=== PATIENT | female | born 1975 | race Caucasian/White ===

== ENCOUNTER 2017-01-17 06:40 | Inpatient (IN) | payer OTHER ==
[2017-01-17 08:15] VITALS: BMI 33.8
--- NOTE | 2017-01-17 08:55 | HP ---
Admitting History and Physical - Admission Chief Complaint: induction, post dates History of Present Illness: 41 y/o at 40.4 weeks post dates asking for inductio. She is a pt of [facility] and has pos ecoli in the also gbs, hiv neg, rpr-neg, rubella immune History Source: Patient Limitations to Obtaining History: No Limitations - Past Medical History DIRECTOR NEWS: No: Alzheimer's, CVA, Dementia, Migraine, Multiple Sclerosis, Peripheral Neuropathy, Parkinson's, Seizure, Syncope, TIA, Vertigo, Other Cardiovascular: No: AFIB, Aneurysm, Aortic Insufficiency, Aortic Stenosis, CAD, CHF, Deep Vein Thrombosis, HTN, Hyperlipdemia, PA, Mitral Insufficiency, Mitral Stenosis, Murmur, Pulmonary Hypertension, Other Pulmonary: No: Asthma, Bronchitis, Cancer, COPD, O2 Dependent, Pneumonia, Previously Intubated, Pulmonary Embolus, Pulmonary Fibrosis, Sleep Apnea, Other Gastrointestinal: No: Ascites, Cancer, Constipation, Crohn's Disease, Diverticulitis, Diverticulosis, Esophageal Varices, Gastritis, GERD, GI Bleed, Hemorrhoids, Hiatal Hernia, Inflamatory Bowel Disease, Irritable Bowel Disease, Pancreatitis, Peptic Ulcer Disease, Ulcerative Colitis, Other Hepatobiliary: No: Cirrhosis, Cholelithiasis, Cholecystitis, Choledocholithiasis , Hepatitis A, Hepatitis B, Hepatitis C, Other Renal/: No: Renal Failure, Renal Inusuff, BPH, Cancer, Hematuria, Hemodialysis , Neurogenic Bladder, Renal Calculi, UTI, Other Reproductive: No: Ectopic , Endometriosis, Fibroids, PID, Polycystic Ovary Syndrome, Postmenopausal, Other ...LMP: 03/18/15 ...: 7 ...Para: 6 Heme/Onc: No: Anemia, B12 Deficiency, Bleeding Disorder, Cancer, Current Chemotherapy, Current Radiation Therapy, Hemochromatosis, Hypercoaguable State, Myeloproliferative Synd, Sickle Cell Disease, Sickle Cell Trait, Thrombocytopenia, Other Infectious Disease: No: AIDS, C-Diff, Herpes Zoster, HIV, MRSA, STD's, Tuberculosis, VREF, Other Psych: No: Addictions, Anxiety, Bipolar, Depression, Panic, Psychosis, Schizophrenia, Other Musculoskeletal: No: Bursitis, Chronic low back pain, Hemiparesis, Hemiplegia, Osteoarthritis, Paraplegia, Other Rheumatology: No: Fibromyalgia, Gout, Lupus, Rheumatoid Arthritis, Sarcoidosis, Vasculitis, Other ENT: No: Allergic Rhinitis, Sinusitis, Other Dermatology: No: Basal Cell, Cellulitis, Eczema, Melanoma, Psoriasis, Squamous Cell, Other - Past Surgical History Past Surgical History: No: None, AAA Repair, AICD, Amputation, Appendectomy, Arthrosocopy, AV Fistula/Graft, Bariatric Surgery, Breast Biopsy, Bypass, CABG, Carotid Endarterectomy, Cataract Removal, Cholecystectomy, Colectomy, Colonoscopy, Colostomy, Craniotomy, , Cystectomy, Hernia Repair, Hysterectomy, Ileal Conduit, Ileosotomy, Joint Replacement, Kidney Transplant, Laminectomy, Liver Transplant, Mastectomy, Nephrectomy, Oopherectomy, Orchiectomy, Permanent Pacemaker, Prostatectomy, Splenectomy, Stent, Thoracotomy , TURP, Tonsillectomy, Tubal Ligation, Upper Endoscopy, Valve Replacement, Vasectomy, Vein Stripping/Ligation - Advance Directives Advance Directives: No: Living Will, Health Care Proxy, DNR, Organ Donor, Tissue Donor, MOLST - Smoking History Smoking history: Never smoked Have you smoked in the past 12 months: No - Alcohol/Substance Use Hx Alcohol Use: No History of Substance Use: denies: None, Cocaine, Heroin, Marijuana, Prescription , Tranquilizers - Social History Usual Living Arrangement: No: Alone, With Spouse, With Parent, With Significant Other, With Child, Assisted Living, Long-Term, Other Home Medications - Allergies Allergies/Adverse Reactions: Allergies Allergy/AdvReac Type Severity Reaction Status Date / Time aspirin Allergy Severe anaphylaxis Verified 04/11/15 19:18 . Penicillins Allergy Severe Difficulty Verified 04/11/15 19:18 Breathing ibuprofen [From Advil] Allergy Rash Verified 04/11/15 19:18 levofloxacin [From Levaquin] Allergy Itching Verified 04/12/15 00:31 vancomycin Allergy Swelling Verified 04/12/15 00:31 - Home Medications Home Medications: Ambulatory Orders Nitrofurantoin Macrocrystal [Nitrofurantoin] 100 mg PO BID #14 capsule 04/12/15 Tablet 1 tablet PO DAILY 01/17/17 Review of Systems - Review of Systems Constitutional: reports: No Symptoms Eyes: reports: No Symptoms HENT: reports: No Symptoms Neck: reports: No Symptoms Cardiovascular: reports: No Symptoms Respiratory: reports: No Symptoms Gastrointestinal: reports: No Symptoms Genitourinary: reports: No Symptoms Breasts: reports: No Symptoms Reported Musculoskeletal: reports: No Symptoms Integumentary: reports: No Symptoms Neurological: reports: No Symptoms Endocrine: reports: No Symptoms Hematology/Lymphatic: reports: No Symptoms Psychiatric: reports: No Symptoms 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ination Vital Signs: Vital Signs Temperature 98.3 F 01/17/17 08:06 Pulse Rate 87 01/17/17 08:06 Respiratory Rate 18 01/17/17 08:06 Blood Pressure 125/80 01/17/17 08:06 O2 Sat by Pulse Oximetry (%) Constitutional: Yes: Well Nourished Eyes: Yes: WNL HENT: Yes: WNL Neck: Yes: WNL Cardiovascular: Yes: WNL Respiratory: Yes: WNL Gastrointestinal: Yes: WNL ...Rectal Exam: Yes: WNL Renal/: Yes: WNL Breast(s): Yes: WNL Musculoskeletal: Yes: WNL Extremities: Yes: WNL Neurological: Yes: WNL ...Motor Strength: WNL Psychiatric: Yes: WNL (exam-1cm/-3/) Assessment/Plan as above cervidil labs expect
[2017-01-17] MEDS: CLINDAMYCIN 600MG PREMIX IVPB 50 ML IVPB SCH ×2 (09:00→21:00)
[2017-01-17] MEDS: ELECTROLYTE-148 SOLN 1,000 ML IV SCH (09:00)
[2017-01-17] MEDS ORDERED: DINOPROSTONE 10 MG VAGINAL SUPPOSITORY VG ONE (09:00)
[2017-01-17 09:44] LABS: BASOPHIL 0.3 % (0-2.0); EOSINOPHIL 0.3 % (0-4.5); MCH 29.9 pg (25.7-33.7); MCHC 33.6 g/dl (32.0-36.0); MEAN PLT VOLUME 10.4 fl (7.5-11.1); NEUTROPHILS 76.9 % (42.8-82.8); PLATELET COUNT 175 K/MM3 (134-434); RDW 14.8 % (11.6-15.6); WHITE BLOOD COUNT 9.9 K/mm3 (4.0-10.0)
[2017-01-17 10:01] LABS: INR 1.02 (0.82-1.09); PROTHROMBIN TIME (PATIENT) 11.2 SEC (9.98-11.88)
[2017-01-17 10:04] LABS: ACTIVATED PTT 30.7 SECONDS (26.9-34.4)
[2017-01-17 10:17] LABS: CALCIUM 8.5 mg/dL (8.5-10.1); CREATININE 0.5 mg/dL (0.55-1.02)
--- NOTE | 2017-01-17 12:05 | PN ---
Progress Note (short form) - Note Progress Note: pt doing well, has cervidil. Occasional pressure continue cervdil
[2017-01-17] MEDS ORDERED: BUTORPHANOL TARTRATE 1 MG/ML VIAL IVPUSH PRN (20:31)
[2017-01-17] MEDS ORDERED: PROMETHAZINE HCL 25 MG/1 ML VIAL IVPUSH ONE (20:31)
--- NOTE | 2017-01-17 20:33 | PN ---
Progress Note (short form) - Note Progress Note: cx 2 cm 75 vx -2 mi, fhr cat 1 , contraction q 2min , wants pain meds
[2017-01-18] MEDS: CLINDAMYCIN 600MG PREMIX IVPB 50 ML IVPB SCH ×2 (03:00→09:15)
[2017-01-18] MEDS ORDERED: FENTANYL/BUPIVACAINE/NS/PF - PCEA - 50 ML DISP.SYRIN EP SCH (03:15)
--- NOTE | 2017-01-18 03:36 | PN ---
Progress Note (short form) - Note Progress Note: cx 5 cm, 80 vx -2 mi, fhr cat 1, contraction q 3min
--- NOTE | 2017-01-18 08:28 | PN ---
Progress Note (short form) - Note Progress Note: cx 6 cm 80 vx -1 arom, mec stain amniotic fluid , contraction irregular . scalp electrode appllied, LT side . pitocin stimulation. rba discussed
[2017-01-18] MEDS ORDERED: OXYTOCIN 15 UNITS/ LR 250 ML 250 ML IVPB SCH (08:30)
[2017-01-18] MEDS: ELECTROLYTE-148 SOLN 1,000 ML IV SCH (09:20)
--- NOTE | 2017-01-18 10:43 | PN ---
Progress Note (short form) - Note Progress Note: cx 7 cm 80 vx -1 mr, fhr cat 1,contraction q 3 to 4 min plan cont pitocin , revaluate in 1 HR
--- NOTE | 2017-01-18 12:02 | PN ---
Progress Note (short form) - Note Progress Note: cx 9 cm 100 vx 0 , mild variable, wants to push
[2017-01-18] MEDS ORDERED: BISACODYL 10 MG SUPP.RECT RC PRN (12:33)
[2017-01-18] MEDS ORDERED: oxyCODONE HCL 5 MG TABLET PO PRN (12:33)
[2017-01-18] MEDS ORDERED: BENZOCAINE 28 GM HEMORRHOIDAL OINTMENT TP PRN (12:33)
[2017-01-18] MEDS ORDERED: METHYLERGONOVINE MALEATE 0.2 MG/1 ML AMP IM PRN (12:33)
[2017-01-18] MEDS ORDERED: WITCH HAZEL 50% (TUCKS) 40 PAD/JAR PAD TP PRN (12:33)
[2017-01-18] MEDS ORDERED: BENZOCAINE 20% 57 GM BOTTLE TP PRN (12:33)
[2017-01-18] MEDS ORDERED: IBUPROFEN 600 MG TABLET (FP) PO PRN (12:33)
[2017-01-18] MEDS ORDERED: D5W-LR W/ 20 UNITS OXYTOCIN 1,000 ML IV SCH (12:45)
[2017-01-18 13:31] LABS: ARTERIAL BLD GAS O2 SATURATION 37.1 % (90-98.9); ARTERIAL BLOOD GAS BASE EXCESS -5.6 meq/l (-2-2); ARTERIAL BLOOD GAS HCO3 22.8 meq/L (22-26)
[2017-01-18 13:36] LABS: ARTERIAL BLOOD GAS PO2 20.7 mmHg (80-100); ARTERIAL BLOOD GAS pH 7.23 (7.35-7.45)
[2017-01-18 13:37] LABS: VENOUS PH 7.32 (7.32-7.42)
[2017-01-18 13:38] LABS: VENOUS BLOOD GAS HCO3 22.2 meq/L (19-25)
[2017-01-18] MEDS: FERROUS SO4 325 MG TABLET (FP) PO SCH (21:24)
[2017-01-19] MEDS: ACETAMINOPHEN 325 MG TABLET (FP) PO PRN ×3 (01:56→19:47)
[2017-01-19 08:16] LABS: BASOPHIL 0.2 % (0-2.0); EOSINOPHIL 0.6 % (0-4.5); MCH 29.8 pg (25.7-33.7); MCHC 33.3 g/dl (32.0-36.0); MEAN CELL VOLUME 89.5 fl (80-96); MEAN PLT VOLUME 10.9 fl (7.5-11.1); NEUTROPHILS 75.9 % (42.8-82.8); PLATELET COUNT 169 K/MM3 (134-434); RDW 15.2 % (11.6-15.6)
--- NOTE | 2017-01-19 08:24 | PN ---
Post Progress Note - Subjective Subjective: no complains Post Day: 1 Type of Delivery: Vital Signs: Vital Signs Temperature 98.1 F 01/19/17 06:00 Pulse Rate 80 01/19/17 06:00 Respiratory Rate 18 01/19/17 06:00 Blood Pressure 110/60 01/19/17 06:00 O2 Sat by Pulse Oximetry (%) 99 01/18/17 12:15 Breast Exam: Yes: Soft. No: Engorged Uterus: Yes: Fundus Firm, Fundus below umbilicus, Non-tender Lochia: Yes: Rubra Lochia, amount: Moderate Extremities: Yes: Calves non-tender Perineum: Yes: Intact Activity: Ambulating - Labs Labs: CBC WBC 12.0 K/mm3 (4.0-10.0) H 01/19/17 07:20 RBC 3.68 M/mm3 (3.60-5.2) 01/19/17 07:20 Hgb 11.0 GM/dL (10.7-15.3) D 01/19/17 07:20 Hct 32.9 % (32.4-45.2) 01/19/17 07:20 MCV 89.5 fl (80-96) 01/19/17 07:20 MCHC 33.3 g/dl (32.0-36.0) 01/19/17 07:20 RDW 15.2 % (11.6-15.6) 01/19/17 07:20 Plt Count 169 K/MM3 (134-434) 01/19/17 07:20 MPV 10.9 fl (7.5-11.1) 01/19/17 07:20 Neutrophils % 75.9 % (42.8-82.8) 01/19/17 07:20 Lymphocytes % 17.1 % (8-40) 01/19/17 07:20 Monocytes % 6.2 % (3.8-10.2) 01/19/17 07:20 Eosinophils % 0.6 % (0-4.5) D 01/19/17 07:20 Basophils % 0.2 % (0-2.0) 01/19/17 07:20 Assessment/Plan stable. plan discharge tomorrow.
[2017-01-19] MEDS: FERROUS SO4 325 MG TABLET (FP) PO SCH ×2 (09:20→21:17)
[2017-01-19] MEDS: PRENATAL VITAMINS W/ FOLIC ACID TABLET (FP) PO SCH (09:20)
[2017-01-19] MEDS ORDERED: SENNOSIDES/DOCUSATE COMBO (SENNA PLUS) TABLET (UD) PO PRN (22:00)
--- NOTE | 2017-01-20 06:29 | PN ---
Post Progress Note Type of Delivery: Vital Signs: Vital Signs Temperature 98.7 F 01/19/17 21:29 Pulse Rate 78 01/19/17 21:29 Respiratory Rate 20 01/19/17 21:29 Blood Pressure 114/62 01/19/17 21:29 O2 Sat by Pulse Oximetry (%) 99 01/18/17 12:15 Breast Exam: Yes: Soft Uterus: Yes: Fundus Firm Abdomen/GI: Yes: Abdomen soft Lochia: Yes: Rubra Lochia, amount: Small Extremities: Yes: Calves non-tender Perineum: Yes: Intact Activity: Ambulating - Labs Labs: CBC WBC 12.0 K/mm3 (4.0-10.0) H 01/19/17 07:20 RBC 3.68 M/mm3 (3.60-5.2) 01/19/17 07:20 Hgb 11.0 GM/dL (10.7-15.3) D 01/19/17 07:20 Hct 32.9 % (32.4-45.2) 01/19/17 07:20 MCV 89.5 fl (80-96) 01/19/17 07:20 MCHC 33.3 g/dl (32.0-36.0) 01/19/17 07:20 RDW 15.2 % (11.6-15.6) 01/19/17 07:20 Plt Count 169 K/MM3 (134-434) 01/19/17 07:20 MPV 10.9 fl (7.5-11.1) 01/19/17 07:20 Neutrophils % 75.9 % (42.8-82.8) 01/19/17 07:20 Lymphocytes % 17.1 % (8-40) 01/19/17 07:20 Monocytes % 6.2 % (3.8-10.2) 01/19/17 07:20 Eosinophils % 0.6 % (0-4.5) D 01/19/17 07:20 Basophils % 0.2 % (0-2.0) 01/19/17 07:20 Assessment/Plan as above continue care dc home
[2017-01-20 09:35] VITALS: BP 119/67; PULSE 76; TEMP 97.7
[2017-01-20] MEDS: FERROUS SO4 325 MG TABLET (FP) PO SCH (10:34)
[2017-01-20] MEDS: ACETAMINOPHEN 325 MG TABLET (FP) PO PRN (10:34)
[2017-01-20] MEDS: PRENATAL VITAMINS W/ FOLIC ACID TABLET (FP) PO SCH (10:34)
--- NOTE | 2017-01-25 21:19 | DS ---
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 Vital Signs: Vital Signs Temperature 97.7 F 01/20/17 07:30 Pulse Rate 76 01/20/17 07:30 Respiratory Rate 18 01/20/17 07:30 Blood Pressure 119/67 01/20/17 07:30 O2 Sat by Pulse Oximetry (%) 99 01/18/17 12:15 Constitutional: Yes: Well Nourished, No Distress, Calm Eyes: Yes: WNL, Conjunctiva Clear, EOM Intact HENT: Yes: WNL, Atraumatic, Normocephalic Neck: Yes: WNL, Supple, Trachea Midline Cardiovascular: Yes: WNL, Regular Rate and Rhythm Respiratory: Yes: WNL, Regular, CTA Bilaterally Gastrointestinal: Yes: WNL ...Rectal Exam: Yes: WNL Renal/: Yes: WNL ....Post : Yes: Uterus firm, Uterus non-tender, Slight lochia rubra Breast(s): Yes: WNL Musculoskeletal: Yes: WNL Extremities: Yes: WNL Integumentary: Yes: WNL Wound/Incision: Yes: Clean/Dry Neurological: Yes: WNL, Alert, Oriented ...Motor Strength: WNL Psychiatric: Yes: WNL, Alert, Oriented Labs: CBC, BMP 01/19/17 07:20 01/17/17 09:20 Delivery - Delivery Vaginal Delivery: Spontaneous (no complication) Type of Anesthesia: Epidural Episiotomy/Laceration: None EBL (cc): 300 Delivery, Single - Stages of Labor Date 1st Stage Initiatied: 01/17/17 Time 1st Stage Initiated: 22:00 Date 2nd Stage Initiated: 01/18/17 Time 2nd Stage Initiated: 12:20 Date of Delivery: 01/18/17 Time of Delivery: 12:23 Time Placenta Delivered: 12:28 Placenta: Yes: Spontaneous - Condition of Cigar 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: Yes Name: Groening,[place] Infant Gender: Female Weight: 6 lb 10 oz Position: Left, OA Total Hours ROM (Hrs/Mins): 4/13 - 1 Minute Total Score: 8 5 Minutes Total Score: 8 - [place] Feeding Plan Initial Plan: Exclusive throughout hospitalization Discharge Summary Reason For Visit: LABOR ADMIT Procedures: Principal: Condition: Good - Instructions Diet, Activity, Other Instructions: PLEASE FOLLOWUP WITH IN FOUR WEEKS PLEASE CALL FOR APPOINTMENT IF ANY HEAVY BLEEDING, FEVER, OR SEVERE PAIN CALL WARM LINE: [phone] Referrals: Son Fisher MD [Staff Physician] - Disposition: HOME - Home Medications Comprehensive Discharge Medication List: Ambulatory Orders Nitrofurantoin Macrocrystal [Nitrofurantoin] 100 mg PO BID #14 capsule 04/12/15 Tablet 1 tablet PO DAILY 01/17/17 Acetaminophen 325 mg PO TID 7 Days 01/20/17
== END 2017-01-20 12:26 | disposition home or self-care (01) | DRG 560 ==
LOC: JLDR 06:40 → J3W 01-18 14:30
PROVIDERS: ADMIT Obstetrics & Gynecology; ATTEND Obstetrics & Gynecology
PROC: 10E0XZZ Delivery of Products of Conception, External Approach (ICD-10-PCS; principal; 2017-01-18)
PROC: 3E0P7GC Introduction of Other Therapeutic Substance into Female Reproductive, Via Natural or Artificial Opening (ICD-10-PCS; 2017-01-18)
PROC: 30233S1 Transfusion of Nonautologous Globulin into Peripheral Vein, Percutaneous Approach (ICD-10-PCS; 2017-01-18)
DX: O48.0 Post-term pregnancy (principal); Z3A.40 40 weeks gestation of pregnancy; Z37.0 Single live birth
CPT/HCPCS: 36415; 36600; 59409; 80048; 82803; 85025; 85461; 85610; 85730; 86593; 86850; 86900; 86901; 86999

== ENCOUNTER 2020-04-14 23:47 | Emergency (ER) | payer OTHER ==
[2020-04-14 23:53] VITALS: BP 126/69; PULSE 74; TEMP 97.7; BMI 31.6
[2020-04-15] MEDS ORDERED: ACETAMINOPHEN 1000 MG/100 ML VIAL (NON FORMULARY) IVPB ONE (01:29)
[2020-04-15 02:11] LABS: BASO % 0.3 % (0-2.0); HEMOGLOBIN 12.6 GM/dL (10.7-15.3); LYMPH % 25.5 % (8-40); MCH 29.9 pg (25.7-33.7); MCHC 33.2 g/dl (32.0-36.0); MEAN CELL VOLUME 89.8 fl (80-96); MEAN PLT VOLUME 9.8 fl (7.5-11.1); MONO % 5.8 % (3.8-10.2); NEUT % 66.4 % (42.8-82.8); PLATELET COUNT 312 K/MM3 (134-434); RBC 4.22 M/mm3 (3.60-5.2); RDW 14.1 % (11.6-15.6); WHITE BLOOD COUNT 12.6 K/mm3 (4.0-10.0)
[2020-04-15 02:25] LABS: PROTHROMBIN TIME (PATIENT) 11.8 SEC (9.7-13.0)
[2020-04-15] MEDS ORDERED: ACETAMINOPHEN INJECTION 100 ML IVPB ONE (02:33)
[2020-04-15 02:38] LABS: ALBUMIN 3.9 g/dl (3.4-5.0); ALK PHOS 128 U/L (45-117); ANION GAP 5 MMOL/L (8-16); BILIRUBIN,TOTAL 0.4 mg/dL (0.2-1); BLOOD UREA NITROGEN 7.9 mg/dL (7-18); CALCIUM 9.3 mg/dL (8.5-10.1); CHLORIDE 107 mmol/L (98-107); CO2 28 mmol/L (21-32); CREATININE 0.6 mg/dL (0.55-1.3); GLUCOSE,RANDOM 112 mg/dL (74-106); POTASSIUM 3.9 mmol/L (3.5-5.1); SGOT/AST 24 U/L (15-37); SGPT/ALT 34 U/L (13-61); SODIUM 140 mmol/L (136-145); TOT PROT 7.6 g/dl (6.4-8.2)
[2020-04-15 02:41] LABS: EPI CELLS 17 /uL (0-25.1); HYALINE CASTS 1 /uL (0-3.1); PH,URINE 7.5 (5.0-8.0); URINE APPEARANCE CLEAR; URINE BACTERIA 537 /uL (0-1359); URINE BILIRUBIN NEGATIVE (NEGATIVE); URINE COLOR YELLOW; URINE GLUCOSE (UA) NEGATIVE (NEGATIVE); URINE KETONE NEGATIVE (NEGATIVE); URINE LEUK ESTERASE 3+ (NEGATIVE); URINE NITRITE NEGATIVE (NEGATIVE); URINE PROTEIN NEGATIVE (NEGATIVE); URINE RBC 9 /uL (0-23.9); URINE WBC 166 /uL (0-25.8)
[2020-04-15] MEDS ORDERED: FAMOTIDINE 20 MG/50 ML IVPB 20 MG/50 ML MG IVPB ONE (03:00)
[2020-04-15] MEDS ORDERED: FLUCONAZOLE 100 MG TABLET (UD) PO ONE (03:00)
[2020-04-15] MEDS ORDERED: FAMOTIDINE 20 MG TABLET PO ONE (03:04)
[2020-04-15] MEDS ORDERED: FLUCONAZOLE 100 MG TABLET (UD) ONE (03:26)
[2020-04-15] MEDS ORDERED: FAMOTIDINE 20 MG TABLET ONE (03:26)
== END 2020-04-15 03:47 | disposition home or self-care (01) ==
LOC: JER 23:47
PROC: 3E033NZ Introduction of Analgesics, Hypnotics, Sedatives into Peripheral Vein, Percutaneous Approach (ICD-10-PCS; principal; 2020-04-14)
PROC: 3E033GC Introduction of Other Therapeutic Substance into Peripheral Vein, Percutaneous Approach (ICD-10-PCS; 2020-04-14)
DX: R07.89 Other chest pain (principal)
CPT/HCPCS: 36415; 71250-TC; 80053; 81003; 82550; 82728; 83615; 84484; 84703; 85025; 85610; 85730; 86140; 87077; 87086; 93005; 93010; 99285-25

== ENCOUNTER 2020-06-02 04:46 | Emergency (ER) | payer OTHER ==
[2020-06-02] MEDS ORDERED: FAMOTIDINE 20 MG TABLET PO ONE (05:20)
[2020-06-02 05:24] VITALS: TEMP 98.5; BMI 29.9
--- NOTE | 2020-06-02 05:26 | PDOC ---
History of Present Illness - General Chief Complaint: Pain Stated Complaint: ABDOMINAL PAIN Time Seen by Provider: 06/02/20 04:50 - History of Present Illness Initial Comments: 06/02/20 05:21 45 yo female with pmh GERD, COVID presenting to ED for palpitations that started two hours ago. Pt explains she has been having gas like pains for the last two days where she took her prescribed omeprazole and probitoic. Today pain was wo rse so decided to take gas x as well and then started feeling palpitations. Pt now still has pressure like pain going from epigastric area to throat. Pt explains pain is worse when drinking orange juice. Pt denies nausea, vomitting, shortness of breath, fevers or chills. PMH: GERD, COVID Med: omeprazole PSH: denies Social: denies alcohol, smoking and drugs allergies: aspirin, penicillin, ibuprofen, levofloxacin, vancomycin Family history: [place] in mother in 50s Past History - Medical History Allergies/Adverse Reactions: Allergies Allergy/AdvReac Type Severity Reaction Status Date / Time aspirin Allergy Severe anaphylaxis Verified 06/02/20 05:13 . Penicillins Allergy Severe Difficulty Verified 06/02/20 05:13 Breathing ibuprofen [From Advil] Allergy Rash Verified 06/02/20 05:13 levofloxacin [From Levaquin] Allergy Itching Verified 06/02/20 05:13 vancomycin Allergy Swelling Verified 06/02/20 05:13 Home Medications: Ambulatory Orders Nitrofurantoin Macrocrystal [Nitrofurantoin] 100 mg PO BID #14 capsule 04/12/15 Tablet 1 tablet PO DAILY 01/17/17 Acetaminophen 325 mg PO TID 7 Days capsule 01/20/17 Doxycycline Monohydrate [Mondoxyne Nl] 100 mg PO BID 14 Days #28 capsule 03/08/20 Doxycycline Monohydrate [Mondoxyne Nl] 100 mg PO BID 14 Days #28 capsule 03/08/20 Asthma: No Cancer: No Cardiac Disorders: No COPD: No Diabetes: No HTN: No Seizures: No Thyroid Disease: No - Reproductive History Is Patient Now?: No (#): 8 Para: 5 Therapeutic (s) & number: No Spontaneous : 2 - Immunization History Immunization Up to Date: Yes - Psycho-Social/Smoking History Smoking History: Never smoked Have you smoked in the past 12 months: No Information on smoking cessation initiated: No - Substance Abuse Hx (Audit-C & DAST Scrn) How often the patient has a drink containing alcohol: Never Score: In Men: 4 or > Positive; In Women: 3 or > Positive: 0 Screen Result (Pos requires Nsg. Audit-10AR): Negative In the last yr the pt used illegal drug/Rx for NonMed reason: No Score: Yes response is considered Positive: 0 Screen Result (Positive result requires Nsg. DAST-10): Negative Review of Systems - Review of Systems Comments:: 06/02/20 05:25 GENERAL/CONSTITUTIONAL: No fever or chills. No weakness. HEAD, EYES, EARS, NOSE AND THROAT: No change in vision. No ear pain or discharge. CARDIOVASCULAR:Chest pain. NO shortness of breath. RESPIRATORY: No cough, wheezing, or hemoptysis. GASTROINTESTINAL: No nausea, vomiting, diarrhea or constipation. GENITOURINARY: No dysuria, frequency, or change in urination. MUSCULOSKELETAL: No joint or muscle swelling or pain. No neck or back pain. SKIN: No rash NEUROLOGIC: No headache, vertigo, loss of consciousness, or change in strength/sensation. ENDOCRINE: No increased thirst. No abnormal weight change ALLERGIC/IMMUNOLOGIC: No hives *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 - Vital Signs Last Vital Signs Temp Pulse Resp BP Pulse Ox 98.5 F 80 18 127/81 99 06/02/20 04:50 06/02/20 04:50 06/02/20 04:50 06/02/20 04:50 06/02/20 04:50 - 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 06/02/20 05:26 GENERAL: Awake, alert, and fully oriented, in no acute distress HEAD: No signs of trauma, normocephalic, atraumatic EYES: PERRLA, EOMI, sclera anicteric, conjunctiva clear ENT: Auricles normal inspection, hearing grossly normal, nares patent, oropharynx clear without exudates. Moist mucosa NECK: Normal ROM, supple, no lymphadenopathy, JVD, or masses LUNGS: No distress, speaks full sentences, clear to auscultation bilaterally HEART: Regular rate and rhythm, normal S1 and S2, no murmurs, rubs or gallops, peripheral pulses normal and equal bilaterally. ABDOMEN: Soft, normoactive bowel sounds. epigastric tenderness and RUQ tenderness. EXTREMITIES : Normal inspection, Normal range of motion, no edema. No clubbing or cyanosis. NEUROLOGICAL: Cranial nerves II through XII grossly intact. Normal speech, nor mal gait, no focal sensorimotor deficits SKIN: Warm, Dry, normal turgor, no rashes or lesions noted ED Treatment Course - LABORATORY CBC & Chemistry Diagram: 06/02/20 05:26 06/02/20 05:26 Medical Decision Making - Medical Decision Making 06/02/20 05:29 45 year old female complaining of palpitations and epigastric pain radiating to neck. Will get cbc, cmp, ekg, cardiac enzymes and chest xray. Will give pepcid. 06/02/20 07:21 Pt has elevated alk phos, ast, and alt will get gallbladder ultrasound. Pt was signed out to AM team. Discharge - Discharge Information Problems reviewed: Yes Clinical Impression/Diagnosis: Epigastric pain Condition: Fair Disposition: HOME - Follow up/Referral Referrals: Prisca Fajardo [Primary Care Provider] - - Patient Discharge Instructions Patient Printed Discharge Instructions: DI for Epigastric Pain Additional Instructions: You came into the ED for epigastric pain. At the ED we did labs and imaging. The labs showed elevated liver levels so we decided to scan your gallbladder. Please follow up with your PCP for this pain within one week. IF you have any of the following please return: - unable to eat anything by mouth - fever - bloody emesis Any emergent symptoms please call for medical help right away. - Post Discharge Activity
[2020-06-02] MEDS ORDERED: FAMOTIDINE 20 MG TABLET ONE (05:36)
[2020-06-02 05:39] LABS: BASO % 0.3 % (0-2.0); EOS % 1.3 % (0-4.5); HEMATOCRIT 41.4 % (32.4-45.2); HEMOGLOBIN 13.8 GM/dL (10.7-15.3); LYMPH % 29.4 % (8-40); MCH 29.7 pg (25.7-33.7); MCHC 33.2 g/dl (32.0-36.0); MEAN CELL VOLUME 89.3 fl (80-96); MEAN PLT VOLUME 9.4 fl (7.5-11.1); MONO % 7.3 % (3.8-10.2); NEUT % 61.7 % (42.8-82.8); PLATELET COUNT 313 K/MM3 (134-434); RBC 4.64 M/mm3 (3.60-5.2); RDW 13.6 % (11.6-15.6); WHITE BLOOD COUNT 10.2 K/mm3 (4.0-10.0)
--- NOTE | 2020-06-02 05:54 | PDOC ---
Attending Attestation - Resident Resident Name: Maximo Trotter - ED Attending Attestation I have performed the following: I have examined & evaluated the patient, The case was reviewed & discussed with the resident, I agree w/resident's findings & plan - HPI HPI: 06/02/20 05:47 Pt comes with GERD and reflux. 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 Pt got over COVID and she was on doxycycline x 10 days. Pt's CXR showed that the doxy resolved her pneumonia. Pt noted that 2 weeks after the doxy course was completed she started having epigastric pain and discomfort. Pt wants to make sure this has nothing to do with her heart. She states that she has been eating more fruits and veggies, and it sounds sa though to me that pt is not eating enough food. - Physicial Exam PE: 06/02/20 05:54 Pt has minimal epigastric pain Rest of exam is normal Pt has no fever and no chills Pt has no flank pain Pt has normal HEART and LUNGS neuro: no focal deficits. - Medical Decision Making 06/02/20 05:55 Pt will have basic labs. CXR also. She will be referred to GI specialist. 06/02/20 06:13 Labs are all normal, except for LFTs that are elevated. This could be GB disease and she will require an abdominal sono in the AM Heart Score/ECG Review - ECG Intrepretation Rhythm: Regular Rhythm - [place]: Normal - P and OR Delta Wave(s) Present: No WPW: No - QRS Poor R Wave Progression: No Q Wave Present: No - ST and T Early Repolarization: No Non Specific ST-T Wave changes: No Flattened T Waves: No - ECG Impressions Normal ECG: Yes Non-specific ST Elevation: No Ischemic Changes: No Bradycardia: No Torsades rufus Pointes: No WPW: No Discharge - Discharge Information Problems reviewed: Yes Clinical Impression/Diagnosis: Epigastric pain Condition: Fair Disposition: HOME - Additional Discharge Information Prescriptions: Famotidine 10 mg PO PRN #30 tablet - Follow up/Referral Referrals: Prisca Fajardo [Primary Care Provider] - - Patient Discharge Instructions Patient Printed Discharge Instructions: DI for Epigastric Pain Additional Instructions: Take tylenol, as directed by the label, for pain control. Take pepcid and maalox, as directed by the label. These medications can be purchased over the counter. Drink plenty of fluids. Please follow up with your PCP for this pain within one week. Please provide th em with the Ultrasound Report you received. Return to the emergency department if you experience: - unable to eat anything by mouth - fever - bloody vomiting - chest pain - anything that concerns you - Post Discharge Activity
[2020-06-02 06:08] LABS: ALBUMIN 4.2 g/dl (3.4-5.0); ALK PHOS 137 U/L (45-117); ANION GAP 10 MMOL/L (8-16); BILIRUBIN,TOTAL 0.6 mg/dL (0.2-1); BLOOD UREA NITROGEN 11.8 mg/dL (7-18); CALCIUM 9.2 mg/dL (8.5-10.1); CHLORIDE 106 mmol/L (98-107); CO2 24 mmol/L (21-32); CREATININE 0.7 mg/dL (0.55-1.3); GLUCOSE,RANDOM 111 mg/dL (74-106); POTASSIUM 3.9 mmol/L (3.5-5.1); SGOT/AST 47 U/L (15-37); SGPT/ALT 65 U/L (13-61); SODIUM 139 mmol/L (136-145); TOT PROT 8.4 g/dl (6.4-8.2)
[2020-06-02 06:47] LABS: LIPASE 183 U/L (73-393)
[2020-06-02] MEDS ORDERED: ACETAMINOPHEN 325 MG TABLET (FP) PO ONE (07:04)
--- NOTE | 2020-06-02 07:26 | PDOC ---
*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 - Vital Signs Last Vital Signs Temp Pulse Resp BP Pulse Ox 98.5 F 80 18 127/81 99 06/02/20 04:50 06/02/20 04:50 06/02/20 04:50 06/02/20 04:50 06/02/20 04:50 ED Treatment Course - LABORATORY CBC & Chemistry Diagram: 06/02/20 05:26 06/02/20 05:26 - ADDITIONAL ORDERS Additional order review: Laboratory Results 06/02/20 06/02/20 05:26 05:26 Sodium 139 Potassium 3.9 Chloride 106 Carbon Dioxide 24 Anion Gap 10 BUN 11.8 Creatinine 0.7 Est GFR (CKD-EPI)AfAm 119.58 Est GFR (CKD-EPI)NonAf 103.18 Random Glucose 111 H Calcium 9.2 Total Bilirubin 0.6 AST 47 H ALT 65 H Alkaline Phosphatase 137 H Creatine Kinase 122 Troponin I < 0.02 Total Protein 8.4 H Albumin 4.2 Lipase 183 Serum , Qual Negative 06/02/20 05:26 RBC 4.64 MCV 89.3 MCHC 33.2 RDW 13.6 MPV 9.4 Neutrophils % 61.7 Lymphocytes % 29.4 Monocytes % 7.3 Eosinophils % 1.3 Basophils % 0.3 - Medications Given in the ED: ED Medications Discontinued Medications Generic Name Dose Route Start Last Admin Trade Name Jim PRN Reason Stop Dose Admin Famotidine 20 mg 06/02/20 05:20 06/02/20 05:37 Pepcid - PO 06/02/20 05:21 20 mg ONCE ONE Administration Medical Decision Making - Medical Decision Making 06/02/20 07:26 signed out from PM team - epigastric pain x 2days - elevated LFTs - neg trop - EKG 06/02/20 05:57 HR 65 intervals wnl NSR, RAD, no MATTY/D, no TWI f/u RUQ US dispo accordingly 06/02/20 11:52 US report negative DC home w/ PCP f/u Discharge - Discharge Information Problems reviewed: Yes Clinical Impression/Diagnosis: Epigastric pain Condition: Fair Disposition: HOME - Follow up/Referral Referrals: Prisca Fajardo [Primary Care Provider] - - Patient Discharge Instructions Patient Printed Discharge Instructions: DI for Epigastric Pain Additional Instructions: Take tylenol, as directed by the label, for pain control. Take pepcid and maalox, as directed by the label. These medications can be purchased over the counter. Drink plenty of fluids. Please follow up with your PCP for this pain within one week. Please provide them with the Ultrasound Report you received. Return to the emergency department if you experience: - unable to eat anything by mouth - fever - bloody vomiting - chest pain - anything that concerns you - Post Discharge Activity
[2020-06-02] MEDS ORDERED: ACETAMINOPHEN 325 MG TABLET (FP) ONE (08:10)
--- NOTE | 2020-06-02 09:11 | EKG ---
Test Reason : Blood Pressure : / mmHG Vent. Rate : 064 BPM Atrial Rate : 064 BPM P-R Int : 158 ms QRS Dur : 080 ms QT Int : 410 ms P-R-T Axes : 000 116 124 degrees QTc Int : 422 ms Lead misplacement ABNORMAL ECG WHEN COMPARED WITH ECG OF 15-APR-2020 01:47, Repeat ECG Confirmed by Ish Simeon ([id number]) on 06/02/2020 9:10:48 AM Referred By: Confirmed By:Ish Simeon
[2020-06-02 13:04] VITALS: BP 112/65; PULSE 74
== END 2020-06-02 11:57 | disposition home or self-care (01) ==
LOC: JER 04:46
DX: R10.13 Epigastric pain (principal)
CPT/HCPCS: 36415; 76705-TC; 80053; 82550; 83690; 84484; 84703; 85025; 93005; 93010; 99285-25

== ENCOUNTER 2021-04-18 20:37 | Inpatient (IN) | payer OTHER ==
[2021-04-18] MEDS ORDERED: ACETAMINOPHEN 1000 MG/100 ML VIAL (NON FORMULARY) IVPB ONE (21:11)
[2021-04-18] MEDS ORDERED: ONDANSETRON 4 MG/2 ML VIAL IVPUSH ONE (21:11)
[2021-04-18] MEDS ORDERED: SODIUM CHLORIDE 0.9% 500 ML INFUS.BAG IV ONE (21:11)
[2021-04-18] MEDS ORDERED: POLYETHYLENE GLYCOL (HEALTHYLAX) 3350 17 GM PACKET PO ONE (21:12)
[2021-04-18] MEDS ORDERED: LACTULOSE 20 GM/30 ML UDC (FOR ORAL USE ONLY) PO ONE (21:12)
[2021-04-18] MEDS ORDERED: LACTULOSE 20 GM/30 ML UDC (FOR ORAL USE ONLY) ONE (21:15)
[2021-04-18] MEDS ORDERED: POLYETHYLENE GLYCOL (HEALTHYLAX) 3350 17 GM PACKET ONE (21:15)
[2021-04-18] MEDS ORDERED: ACETAMINOPHEN INJECTION 100 ML IVPB ONE (21:15)
[2021-04-18] MEDS ORDERED: ONDANSETRON 4 MG/2 ML VIAL ONE (21:15)
[2021-04-18 21:52] LABS: BASO % 0.3 % (0-2.0); EOS % 1.3 % (0-4.5); HEMATOCRIT 39.1 % (32.4-45.2); HEMOGLOBIN 13.2 GM/dL (10.7-15.3); LYMPH % 25.6 % (8-40); MCH 29.6 pg (25.7-33.7); MCHC 33.7 g/dl (32.0-36.0); MEAN CELL VOLUME 87.8 fl (80-96); MEAN PLT VOLUME 9.3 fl (7.5-11.1); MONO % 6.3 % (3.8-10.2); NEUT % 66.5 % (42.8-82.8); PLATELET COUNT 310 10^3/uL (134-434); RBC 4.46 M/mm3 (3.60-5.2); RDW 13.8 % (11.6-15.6); WHITE BLOOD COUNT 16.9 K/mm3 (4.0-10.0)
[2021-04-18 21:56] LABS: CALCIUM 9.1 mg/dL (8.5-10.1)
[2021-04-18 21:57] LABS: BLOOD UREA NITROGEN 11.8 mg/dL (7-18)
[2021-04-18 22:00] LABS: CREATININE 0.9 mg/dL (0.55-1.3)
[2021-04-18 22:01] LABS: BILIRUBIN,TOTAL 0.7 mg/dL (0.2-1)
[2021-04-18 22:02] LABS: TOT PROT 7.7 g/dl (6.4-8.2)
[2021-04-18 22:05] LABS: EPI CELLS >36 /uL (0-25.1); HYALINE CASTS 2 /uL (0-3.1); PH,URINE 7.5 (5.0-8.0); URINE APPEARANCE CLOUDY; URINE BACTERIA 217 /uL (0-1359); URINE BILIRUBIN NEGATIVE (NEGATIVE); URINE COLOR ORANGE; URINE GLUCOSE (UA) NEGATIVE (NEGATIVE); URINE KETONE TRACE (NEGATIVE); URINE LEUK ESTERASE TRACE (NEGATIVE); URINE NITRITE NEGATIVE (NEGATIVE); URINE PROTEIN 1+ (NEGATIVE); URINE RBC 5864 /uL (0-23.9); URINE WBC 38 /uL (0-25.8)
[2021-04-18] MEDS ORDERED: morphine CARPU-JECT 2 MG/1 ML DISP.SYRIN IVPUSH ONE (23:08)
[2021-04-19] MEDS ORDERED: SODIUM CHLORIDE 0.9% 500 ML INFUS.BAG IV ONE (00:22)
[2021-04-19] MEDS ORDERED: TAMSULOSIN HCL 0.4 MG CAP PO ONE (00:22)
[2021-04-19] MEDS ORDERED: TAMSULOSIN HCL 0.4 MG CAP ONE (00:39)
[2021-04-19] MEDS: KCL 10 MEQ IVPB 10 MEQ/100 ML INFUS.BAG IVPB SCH ×3 (03:53→09:12)
[2021-04-19] MEDS ORDERED: TAMSULOSIN HCL 0.4 MG CAP PO PRN (08:57)
[2021-04-19] MEDS ORDERED: morphine CARPU-JECT 4 MG/1 ML DISP.SYRIN IVPUSH PRN (09:01)
[2021-04-19] MEDS: ENOXAPARIN NA (PORCINE) 40 MG/0.4 ML DISP.SYRIN SQ SCH (09:12)
[2021-04-19] MEDS ORDERED: MORPHINE SULFATE 2 MG/ML VIAL IVPUSH PRN (09:14)
[2021-04-19 12:10] LABS: BASO % 0.2 % (0-2.0); EOS % 1.1 % (0-4.5); HEMATOCRIT 37.6 % (32.4-45.2); HEMOGLOBIN 12.6 GM/dL (10.7-15.3); LYMPH % 19.5 % (8-40); MCH 29.8 pg (25.7-33.7); MCHC 33.6 g/dl (32.0-36.0); MEAN CELL VOLUME 88.9 fl (80-96); MEAN PLT VOLUME 9.4 fl (7.5-11.1); MONO % 5.8 % (3.8-10.2); NEUT % 73.4 % (42.8-82.8); PLATELET COUNT 283 10^3/uL (134-434); RBC 4.23 M/mm3 (3.60-5.2); RDW 13.8 % (11.6-15.6); WHITE BLOOD COUNT 11.1 K/mm3 (4.0-10.0)
[2021-04-19 12:27] LABS: CALCIUM 8.6 mg/dL (8.5-10.1)
[2021-04-19 12:28] LABS: BLOOD UREA NITROGEN 5.9 mg/dL (7-18)
[2021-04-19 12:31] LABS: CREATININE 0.5 mg/dL (0.55-1.3)
[2021-04-20 07:21] VITALS: BP 114/49; PULSE 76; TEMP 98.2
[2021-04-20 07:25] LABS: BASO % 0.3 % (0-2.0); EOS % 2.2 % (0-4.5); HEMATOCRIT 38.9 % (32.4-45.2); HEMOGLOBIN 13.1 GM/dL (10.7-15.3); LYMPH % 24.9 % (8-40); MCH 30.1 pg (25.7-33.7); MCHC 33.8 g/dl (32.0-36.0); MEAN CELL VOLUME 89.2 fl (80-96); MEAN PLT VOLUME 9.4 fl (7.5-11.1); MONO % 7.4 % (3.8-10.2); NEUT % 65.2 % (42.8-82.8); PLATELET COUNT 283 10^3/uL (134-434); RBC 4.36 M/mm3 (3.60-5.2); RDW 13.8 % (11.6-15.6)
[2021-04-20 07:49] LABS: CALCIUM 8.8 mg/dL (8.5-10.1)
[2021-04-20 07:50] LABS: ALBUMIN 3.7 g/dl (3.4-5.0); BLOOD UREA NITROGEN 8.9 mg/dL (7-18); MAGNESIUM 2.1 mg/dL (1.8-2.4)
[2021-04-20 07:53] LABS: CREATININE 0.5 mg/dL (0.55-1.3)
[2021-04-20 07:54] LABS: BILIRUBIN,TOTAL 1.2 mg/dL (0.2-1); TOT PROT 7.5 g/dl (6.4-8.2)
[2021-04-20] MEDS: ENOXAPARIN NA (PORCINE) 40 MG/0.4 ML DISP.SYRIN SQ SCH (13:44)
== END 2021-04-20 15:26 | disposition home or self-care (01) | DRG 465 ==
LOC: JER 20:37 → JERBED 04-19 01:02 → J7W 04-19 05:10
PROVIDERS: ADMIT Hospitalist; ATTEND Family Medicine
DX: N13.2 Hydronephrosis with renal and ureteral calculous obstruction (principal); K21.9 Gastro-esophageal reflux disease without esophagitis; K76.0 Fatty (change of) liver, not elsewhere classified; Z86.16 Personal history of COVID-19; E87.5 Hyperkalemia; K59.00 Constipation, unspecified; K76.89 Other specified diseases of liver
CPT/HCPCS: 36415; 74176-TC; 76775-TC; 76856-TC; 80048; 80053; 81003; 83735; 84703; 85025; 87086; 87186; 93005; 93010; 99285-25; C9803; J0131; U0003; U0005

== ENCOUNTER 2021-04-20 22:48 | Inpatient (IN) | payer OTHER ==
[2021-04-20] MEDS ORDERED: ONDANSETRON 4 MG/2 ML VIAL IVPUSH ONE (23:30)
[2021-04-20] MEDS ORDERED: SODIUM CHLORIDE 0.9% 500 ML INFUS.BAG IV ONE (23:30)
[2021-04-20] MEDS ORDERED: morphine CARPU-JECT 4 MG/1 ML DISP.SYRIN IVPUSH ONE (23:30)
[2021-04-20] MEDS ORDERED: morphine SULFATE 4 MG/ML VIAL ONE (23:37)
[2021-04-20] MEDS ORDERED: ONDANSETRON 4 MG/2 ML VIAL ONE (23:37)
[2021-04-21 00:13] LABS: BASO % 0.3 % (0-2.0); HEMATOCRIT 38.2 % (32.4-45.2); HEMOGLOBIN 12.6 GM/dL (10.7-15.3); LYMPH % 11.6 % (8-40); MCH 29.1 pg (25.7-33.7); MCHC 32.9 g/dl (32.0-36.0); MEAN CELL VOLUME 88.3 fl (80-96); MEAN PLT VOLUME 9.1 fl (7.5-11.1); MONO % 4.8 % (3.8-10.2); NEUT % 82.3 % (42.8-82.8); PLATELET COUNT 285 10^3/uL (134-434); RBC 4.32 M/mm3 (3.60-5.2); RDW 13.9 % (11.6-15.6); WHITE BLOOD COUNT 17.3 K/mm3 (4.0-10.0)
[2021-04-21] MEDS ORDERED: CEFTRIAXONE 1 GM in DEXTROSE 5%-WATER - 100 ML IVPB ONE (00:29)
[2021-04-21 00:33] LABS: ALBUMIN 4.3 g/dl (3.4-5.0); CALCIUM 9.4 mg/dL (8.5-10.1)
[2021-04-21 00:34] LABS: BLOOD UREA NITROGEN 13.1 mg/dL (7-18)
[2021-04-21 00:37] LABS: CREATININE 0.9 mg/dL (0.55-1.3)
[2021-04-21 00:38] LABS: BILIRUBIN,TOTAL 0.8 mg/dL (0.2-1); TOT PROT 8.5 g/dl (6.4-8.2)
[2021-04-21] MEDS ORDERED: CEFTRIAXONE 1 GM/50 ML BAG ONE (00:49)
[2021-04-21 01:04] LABS: EPI CELLS >36 /uL (0-25.1); HYALINE CASTS 3 /uL (0-3.1); PH,URINE 5.5 (5.0-8.0); URINE APPEARANCE CLOUDY; URINE BACTERIA 595 /uL (0-1359); URINE BILIRUBIN NEGATIVE (NEGATIVE); URINE COLOR YELLOW; URINE GLUCOSE (UA) NEGATIVE (NEGATIVE); URINE KETONE TRACE (NEGATIVE); URINE LEUK ESTERASE TRACE (NEGATIVE); URINE NITRITE NEGATIVE (NEGATIVE); URINE PROTEIN TRACE (NEGATIVE); URINE UROBILINOGEN 0.2 mg/dL (0.2-1.0); URINE WBC 64 /uL (0-25.8)
[2021-04-21] MEDS ORDERED: TAMSULOSIN HCL 0.4 MG CAP PO PRN (04:02)
[2021-04-21 04:13] LABS: URINE RBC 228.4 /uL (0-23.9); YEAST NONE SEEN (NEGATIVE)
[2021-04-21 06:01] VITALS: BMI 26.6
[2021-04-21] MEDS ORDERED: MORPHINE SULFATE 2 MG/ML VIAL IVPUSH PRN (08:24)
[2021-04-21] MEDS ORDERED: POLYETHYLENE GLYCOL (HEALTHYLAX) 3350 17 GM PACKET PO PRN (09:25)
[2021-04-21] MEDS ORDERED: cefTRIAXone SODIUM 1 GM VIAL ONE (09:33)
[2021-04-21] MEDS ORDERED: DEXTROSE 5%-WATER - 50 ML IVPB ONE (09:33)
[2021-04-21] MEDS: DEXTROSE 5%-NORMAL SALINE 1,000 ML IV SCH ×2 (09:50→21:36)
[2021-04-21] MEDS: HEPARIN NA (PORCINE) 5,000 UNITS/ML 1ML VIAL SQ SCH ×2 (09:51→21:24)
[2021-04-21] MEDS: CEFTRIAXONE 1 GM in DEXTROSE 5%-WATER - 50 ML IVPB SCH (09:51)
[2021-04-21] MEDS ORDERED: [UNRECOGNIZED DRUG - OTHER] PO SCH (10:00)
[2021-04-21] MEDS ORDERED: HYDROCORTISONE 1% TOPICAL LOTION 118 ML BOTTLE TP PRN (21:30)
[2021-04-22] MEDS ORDERED: cefTRIAXone SODIUM 1 GM VIAL ONE (09:14)
[2021-04-22] MEDS ORDERED: DEXTROSE 5%-WATER - 50 ML IVPB ONE (09:14)
[2021-04-22] MEDS: HEPARIN NA (PORCINE) 5,000 UNITS/ML 1ML VIAL SQ SCH (09:18)
[2021-04-22] MEDS: CEFTRIAXONE 1 GM in DEXTROSE 5%-WATER - 50 ML IVPB SCH (09:18)
[2021-04-22] MEDS: DEXTROSE 5%-NORMAL SALINE 1,000 ML IV SCH ×2 (09:22→11:00)
[2021-04-22 09:33] LABS: BASO % 0.4 % (0-2.0); EOS % 3.4 % (0-4.5); HEMATOCRIT 39.4 % (32.4-45.2); HEMOGLOBIN 12.8 GM/dL (10.7-15.3); LYMPH % 27.4 % (8-40); MCH 29.4 pg (25.7-33.7); MCHC 32.4 g/dl (32.0-36.0); MEAN CELL VOLUME 90.8 fl (80-96); MEAN PLT VOLUME 9.8 fl (7.5-11.1); NEUT % 61.8 % (42.8-82.8); PLATELET COUNT 275 10^3/uL (134-434); RBC 4.34 M/mm3 (3.60-5.2); RDW 13.9 % (11.6-15.6); WHITE BLOOD COUNT 8.8 K/mm3 (4.0-10.0)
[2021-04-22 09:57] LABS: CALCIUM 8.6 mg/dL (8.5-10.1)
[2021-04-22 09:59] LABS: BLOOD UREA NITROGEN 8.4 mg/dL (7-18)
[2021-04-22 10:03] LABS: CREATININE 0.6 mg/dL (0.55-1.3)
[2021-04-22] MEDS ORDERED: MIDAZOLAM HCL 2 MG/2 ML SINGLE DOSE VIAL ONE ×2 (13:11)
[2021-04-22] MEDS ORDERED: IOHEXOL 300 MG/ML INFUS..BTL IV ONE ×2 (13:42)
[2021-04-22] MEDS ORDERED: oxyCODONE HCL 5 MG TABLET PO PRN ×2 (14:39)
[2021-04-22] MEDS ORDERED: ONDANSETRON 4 MG/2 ML VIAL IVPUSH PRN (14:39)
[2021-04-22] MEDS ORDERED: LACTATED RINGERS SOLUTION 1,000 ML IV SCH (14:45)
[2021-04-22] MEDS: ACETAMINOPHEN 325 MG TABLET (FP) PO PRN (18:32)
[2021-04-22] MEDS: BETHANECHOL CHLORIDE 25 MG TABLET PO SCH (21:56)
[2021-04-23] MEDS: ACETAMINOPHEN 325 MG TABLET (FP) PO PRN ×2 (00:30→11:55)
[2021-04-23] MEDS: BETHANECHOL CHLORIDE 25 MG TABLET PO SCH ×2 (05:31→14:13)
[2021-04-23 11:37] VITALS: BP 120/69; PULSE 88; TEMP 98.4
== END 2021-04-23 14:00 | disposition home or self-care (01) | DRG 446 ==
LOC: JER 22:48 → JERBED 23:36 → J5S 04-21 05:27
PROVIDERS: ADMIT Hospitalist; ATTEND Family Medicine
PROC: 0TC78ZZ Extirpation of Matter from Left Ureter, Via Natural or Artificial Opening Endoscopic (ICD-10-PCS; principal; 2021-04-22 13:38)
PROC: 0T778DZ Dilation of Left Ureter with Intraluminal Device, Via Natural or Artificial Opening Endoscopic (ICD-10-PCS; 2021-04-22 13:38)
PROC: BT1FZZZ Fluoroscopy of Left Kidney, Ureter and Bladder (ICD-10-PCS; 2021-04-22 13:38)
DX: N13.6 Pyonephrosis (principal); K21.9 Gastro-esophageal reflux disease without esophagitis; Z86.16 Personal history of COVID-19; K59.00 Constipation, unspecified
CPT/HCPCS: 36415; 80048; 80053; 81003; 82360; 85025; 86850; 86900; 86901; 87077; 87086; 88302-TC; 93005; 93010; 94010; 94760; 99285-25; C9803; J1644; U0003; U0005

== ENCOUNTER 2021-05-26 00:46 | Emergency (ER) | payer OTHER ==
[2021-05-26 01:20] VITALS: TEMP 98; BMI 27.4
[2021-05-26 02:35] LABS: HEMATOCRIT 40.1 % (32.4-45.2); HEMOGLOBIN 13.9 GM/dL (10.7-15.3); RBC 4.63 M/mm3 (3.60-5.2); WHITE BLOOD COUNT 5.1 K/mm3 (4.0-10.0)
[2021-05-26 02:36] LABS: BASO % 0.3 % (0-2.0); EOS % 0.5 % (0-4.5); LYMPH % 40.3 % (8-40); MCHC 34.6 g/dl (32.0-36.0); MEAN CELL VOLUME 86.5 fl (80-96); MEAN PLT VOLUME 9.5 fl (7.5-11.1); MONO % 9.8 % (3.8-10.2); NEUT % 49.1 % (42.8-82.8); PLATELET COUNT 200 10^3/uL (134-434); RDW 13.7 % (11.6-15.6)
[2021-05-26 02:53] LABS: CHLORIDE 105 mmol/L (98-107); SODIUM 139 mmol/L (136-145)
[2021-05-26 02:55] LABS: ANION GAP 5 MMOL/L (8-16); BLOOD UREA NITROGEN 7.2 mg/dL (7-18); CALCIUM 8.2 mg/dL (8.5-10.1); CO2 29 mmol/L (21-32)
[2021-05-26 02:56] LABS: ALBUMIN 3.8 g/dl (3.4-5.0); GLUCOSE,RANDOM 102 mg/dL (74-106)
[2021-05-26 02:59] LABS: CREATININE 0.5 mg/dL (0.55-1.3); SGOT/AST 114 U/L (15-37); SGPT/ALT 140 U/L (13-61)
[2021-05-26 03:00] LABS: BILIRUBIN,TOTAL 0.6 mg/dL (0.2-1); TOT PROT 7.8 g/dl (6.4-8.2)
[2021-05-26 03:01] LABS: ALK PHOS 128 U/L (45-117)
[2021-05-26 03:15] LABS: EPI CELLS 28 /uL (0-25.1); HYALINE CASTS 0 /uL (0-3.1); URINE APPEARANCE CLEAR; URINE BACTERIA 391 /uL (0-1359); URINE BILIRUBIN NEGATIVE (NEGATIVE); URINE COLOR YELLOW; URINE GLUCOSE (UA) NEGATIVE (NEGATIVE); URINE KETONE 3+ (NEGATIVE); URINE LEUK ESTERASE 1+ (NEGATIVE); URINE NITRITE NEGATIVE (NEGATIVE); URINE PROTEIN 2+ (NEGATIVE); URINE RBC 1621 /uL (0-23.9); URINE WBC 32 /uL (0-25.8)
[2021-05-26] MEDS ORDERED: CEFTRIAXONE 1 GM in DEXTROSE 5%-WATER - 100 ML IVPB ONE (04:30)
[2021-05-26] MEDS ORDERED: methylPREDNISolone NA SUCC 125 MG/2 ML VIAL IVPUSH ONE (04:51)
[2021-05-26] MEDS ORDERED: methylPREDNISolone NA SUCC 125 MG/2 ML VIAL ONE (04:55)
[2021-05-26 05:51] VITALS: BP 112/65; PULSE 84
== END 2021-05-26 06:47 | disposition home or self-care (01) ==
LOC: JER 00:46
PROC: 3E033GC Introduction of Other Therapeutic Substance into Peripheral Vein, Percutaneous Approach (ICD-10-PCS; principal; 2021-05-26)
DX: M94.0 Chondrocostal junction syndrome [Tietze] (principal); J18.9 Pneumonia, unspecified organism
CPT/HCPCS: 36415; 71046-TC-FY; 71275-TC; 74176-TC; 80053; 81003; 82550; 84484; 84703; 85025; 85379; 93005; 93010; 96374; 99285-25; Q9967

== ENCOUNTER 2022-12-27 16:28 | Emergency (ER) | payer OTHER ==
[2022-12-27 16:44] VITALS: BP 129/77; PULSE 77; RESP 17; TEMP 97.8; BMI 25.8
[2022-12-27] MEDS ORDERED: ACETAMINOPHEN 500 MG TABLET (FP) PO ONE (17:03)
[2022-12-27] MEDS ORDERED: hydrOXYzine PAMOATE 25 MG CAPSULE (FP) PO ONE (17:03)
== END 2022-12-27 18:05 | disposition home or self-care (01) ==
LOC: JERFT 16:28
DX: H60.502 Unspecified acute noninfective otitis externa, left ear (principal)
CPT/HCPCS: 99283-25

== ENCOUNTER 2023-05-01 22:49 | Emergency (ER) | payer OTHER ==
[2023-05-01 22:54] VITALS: BP 134/83; PULSE 90; RESP 18; TEMP 98.1; BMI 27.4
[2023-05-01] MEDS ORDERED: predniSONE 20 MG TABLET (UD) PO ONE (23:06)
[2023-05-01] MEDS ORDERED: predniSONE 20 MG TABLET (UD) ONE (23:10)
== END 2023-05-01 23:35 | disposition home or self-care (01) ==
LOC: JERFT 22:49
DX: L23.9 Allergic contact dermatitis, unspecified cause (principal)
CPT/HCPCS: 99283-25

== ENCOUNTER 2024-05-05 19:51 | Emergency (ER) | payer OTHER ==
[2024-05-05 19:58] VITALS: BP 112/78; PULSE 104; RESP 17; TEMP 97.6; BMI 27.4
[2024-05-05] MEDS: CLINDAMYCIN HCL 300 MG CAPSULE PO ONE (21:57)
== END 2024-05-05 22:11 | disposition home or self-care (01) ==
LOC: JERFT 19:51 → JER 19:51 → JERFT 22:11
DX: J02.0 Streptococcal pharyngitis (principal); J35.1 Hypertrophy of tonsils
CPT/HCPCS: 87651; 99283-25